=== PATIENT | female | born 1990 | race Caucasian/White ===

== ENCOUNTER 2021-03-01 04:11 | Inpatient (IN) ==
[2021-03-01] MEDS ORDERED: Lidocaine 1% 20 ML MDV INFILT PRN (04:16)
[2021-03-01] MEDS ORDERED: Famotidine 20 MG/2 ML VIAL IVP PRN (04:16)
[2021-03-01] MEDS ORDERED: Metoclopramide 10 MG/2 ML VIAL IVP PRN (04:16)
[2021-03-01] MEDS ORDERED: miSOPROStoL 25 MCG TABLET PO PRN (04:16)
[2021-03-01] MEDS ORDERED: Naloxone 0.4 MG/ML INJ IVP PRN (04:16)
[2021-03-01] MEDS ORDERED: Azithromycin 500 MG in 0.9 % Sodium Chloride 250 ML IVPB PRN (04:16)
[2021-03-01] MEDS ORDERED: Ondansetron 4 MG/2 ML VIAL IVP PRN (04:16)
[2021-03-01] MEDS ORDERED: *HR* Nalbuphine 10 MG/ML AMPUL IV PRN (04:16)
[2021-03-01] MEDS ORDERED: Ringers Solution, Lactated 1,000 ML IVC SCH (04:30)
[2021-03-01 05:19] LABS: Basophils % 0.1 %; Eosinophils # 0.1 K/mcL (0.0-0.6); Eosinophils % 0.6 %; Hematocrit 36.8 % (35.3-44.9); Hemoglobin 11.8 g/dL (11.5-15.4); Immature Granulocytes % 0.6 % (0-4); Lymphocytes # 1.4 K/mcL (0.6-4.6); Lymphocytes % 15.6 %; Mean Corpuscular HGB Conc 32.1 g/dL (31.6-35.5); Mean Corpuscular Hemoglobin 28.7 pg (28.0-33.3); Mean Corpuscular Volume 89.5 fL (83.0-100.0); Mean Platelet Volume 10.6 fL (9.4-12.4); Monocytes # 0.7 K/mcL (0.0-1.3); Monocytes % 7.4 %; Neutrophils # 6.9 K/mcL (1.6-8.9); Platelet Count 215 K/mcL (140-400); Red Blood Count 4.11 M/mcL (3.82-4.97); Red Cell Distribution Width 14.4 % (11.5-14.5); Segmented Neutrophils % 75.7 %; White Blood Count 9.1 K/mcL (4.3-11.1)
[2021-03-01 05:25] LABS: Amphetamine Screen,Urine Negative ng/mL (Cutoff=1000); Barbiturate Screen,Urine Negative ng/mL (Cutoff=200); Benzodiazepines Screen,Urine Negative ng/mL (Cutoff=200); Cannabinoid Screen,Urine Negative ng/mL (Cutoff = 50); Cocaine Screen,Urine Negative ng/mL (Cutoff= 300); Opiate Screen,Urine Negative ng/mL (Cutoff=300); Phencyclidine Screen,Urine Negative ng/mL (Cutoff=25)
[2021-03-01 06:12] LABS: Influenza A PCR Negative (Negative); Influenza B PCR Negative (Negative); Resp. Syncytial Virus PCR Negative (Negative)
[2021-03-01 06:13] LABS: SARS-CoV-2 by PCR (In House) Negative (Negative)
[2021-03-01] MEDS ORDERED: Oxytocin 20 units/ LR 1000 mL 20 UNIT/1,000 ML BAG IVC SCH (19:30)
[2021-03-01] MEDS ORDERED: Ropivacaine/PF 0.2% 20 ML VIAL ONE (21:24)
[2021-03-01] MEDS ORDERED: *HR* FentaNYL (PF) 100 MCG/2 ML VIAL ONE (21:24)
[2021-03-01] MEDS ORDERED: Epidural Premix (fent/bupiv) 110 ML EP ONE (21:41)
[2021-03-01] MEDS ORDERED: EPHEDrine 50 MG/ML VIAL IVP PRN (21:55)
[2021-03-01] MEDS ORDERED: Epidural Premix (fent/bupiv) 110 ML EP SCH (22:00)
[2021-03-02] MEDS ORDERED: Benzocaine/Menthol 56 GM AEROSOL SPRAY TP PRN (09:22)
[2021-03-02] MEDS ORDERED: Lanolin 7 G OINT...G. TP PRN (09:22)
[2021-03-02] MEDS ORDERED: Ondansetron ODT 4 MG TAB.RAPDIS SL PRN (09:22)
[2021-03-02] MEDS ORDERED: Oxytocin 20 units/ LR 1000 mL 20 UNIT/1,000 ML BAG IVC SCH (09:30)
[2021-03-02] MEDS: Ibuprofen 600 MG TABLET PO SCH ×2 (13:00→20:31)
[2021-03-02] MEDS: Acetaminophen 325 MG TABLET PO SCH ×2 (18:59→20:32)
[2021-03-03] MEDS: Acetaminophen 325 MG TABLET PO SCH ×3 (03:02→15:00)
[2021-03-03] MEDS: Ibuprofen 600 MG TABLET PO SCH ×2 (03:03→12:30)
[2021-03-03 03:25] VITALS: O2SAT 98
[2021-03-03 07:59] VITALS: BP 116/76; PULSE 67; TEMP 97.6
[2021-03-03] MEDS ORDERED: Prenatal Vit/FA 1 EACH TABLET PO SCH (09:00)
== END 2021-03-03 18:18 | disposition home or self-care (01) | DRG 807 ==
LOC: 1NENULAB 04:11 → 1NENUOBS 03-02 09:08
PROVIDERS: ADMIT Registered Nurse; ATTEND Registered Nurse